=== PATIENT | female | born 1980 | race Hispanic/Latino ===

== ENCOUNTER → 2017-07-25 | Emergency (ER) | payer OTHER ==
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
== END | disposition home or self-care (01) ==
LOC: H.EROB2 13:47
DX: O26.92 Pregnancy related conditions, unspecified, second trimester (principal); Z04.3 Encounter for examination and observation following other accident; Z3A.35 35 weeks gestation of pregnancy; V89.2XXA Person injured in unspecified motor-vehicle accident, traffic, initial encounter; Z36.9 Encounter for antenatal screening, unspecified